=== PATIENT | female | born 1965 | race Caucasian/White ===

== ENCOUNTER 2025-08-08 19:25 | Observation (INO) ==
--- NOTE | 2025-08-08 19:37 | Emergency Department Note ---
History of Present Illness General Chief complaint: Seizure Stated complaint: POSSIBLE SEIZURE, NO HX OF Time Seen by Provider: 08/08/25 19:26 Source: patient and family ( at bedside) History of Present Illness Provider complaint: Seizure-like activity 59-year-old female on Eliquis with history of factor V deficiency presents emergency department for seizure-like activity. Patient states she does not know what happened. at bedside states that approximate 1 hour ago they were cleaning and rushing to get their son when the patient suddenly get very lightheaded and then started to collapse. He stated that the other son caught her. He stated that the patient was biting her tongue and shaking her arms uncontrollably. He states this lasted approximately 2 minutes. No history of seizures. at bedside states that the patient did not strike her head as the son lowered her to the ground. Patient is reporting no pain. Home Medications Medication Instructions Recorded Confirmed Type apixaban 5 mg tablet (Eliquis) 5 mg PO BID 08/08/25 08/08/25 History latanoprost 0.005 % eye drops 1 drp ophthalmic (eye) HS 08/08/25 08/08/25 History metformin 500 mg tablet,extended 500 mg PO DAILY 08/08/25 08/08/25 History release 24 hr rosuvastatin 20 mg tablet 20 mg PO DAILY 08/08/25 08/08/25 History Allergies Allergy/AdvReac Type Severity Reaction Status Date / Time No Known Allergies Allergy Unverified 12/29/15 11:58 Past Med/Surg History Problem List (Updated 08/08/25 @ 22:46 by Nader Berger MD) Prolonged Q-T interval on ECG (Acute) Fracture of tooth (Acute) Seizure (Acute) History of DVT (deep vein thrombosis) (Chronic) Medical History Factor V deficiency Glaucoma Chronic anticoagulation Social History Smoking Status: Never smoker Feels Safe at Home: Yes Physical Exam Vital Signs Vital Signs - 24 hr 08/08/25 19:19 08/08/25 19:19 08/08/25 19:19 Temperature 36.3 C L 36.3 C L Temperature Source Oral Oral Pulse Rate 93 H Pulse Rate [Right Finger] 94 H Pulse Rhythm [Right Finger] Respiratory Rate 18 18 Respiratory Effort / Characteristics Non-Labored Respiratory Depth Normal Blood Pressure 133/87 Blood Pressure [Right Arm] 133/87 Blood Pressure Mean 102 Blood Pressure Mean [Right Arm] 102 Pulse Oximetry 94 94 94 Oxygen Delivery Method Room Air Room Air Room Air Sepsis Recent Fever Within 48 Hours No Sepsis New/Unexplained Change in Mental Status No Sepsis Action Taken by Nursing No Action Required 08/08/25 19:26 08/08/25 19:29 08/08/25 22:13 Temperature Temperature Source Pulse Rate 99 H Pulse Rate [Right Finger] 87 Pulse Rhythm [Right Finger] Regular Respiratory Rate 16 Respiratory Effort / Characteristics Non-Labored Respiratory Depth Normal Blood Pressure Blood Pressure [Right Arm] 148/95 H Blood Pressure Mean Blood Pressure Mean [Right Arm] 112 Pulse Oximetry 94 95 Oxygen Delivery Method Room Air Room Air Sepsis Recent Fever Within 48 Hours Sepsis New/Unexplained Change in Mental Status Sepsis Action Taken by Nursing Physical Exam HENT: Exam performed. -Head: Normocephalic and atraumatic. -Right Ear: External ear normal. No mastoid erythema -Left Ear: External ear normal. No mastoid erythema -Mouth/Throat: The oropharynx is clear and moist. No trismus in the jaw. No dental abscesses or uvula swelling. No oropharyngeal exudate or tonsillar abscesses. Chipped front tooth with type I Joyce dental fracture of tooth #9 EYES: Conjunctivae and EOM are normal. Pupils are equal, round, and reactive to light. Right eye exhibits no discharge. Left eye exhibits no discharge. No scleral icterus. NECK: Normal range of motion. Neck supple. No JVD present. No spinous process tenderness present. No rigidity. No tracheal deviation and normal range of motion present. CV: Normal rate, regular rhythm, normal heart sounds and intact distal pulses. There is no peripheral edema. Palpable radial pulses bue. PULM/CHEST: Effort normal and breath sounds normal. No respiratory distress. No stridor. She has no wheezes. She has no rales. ABD: The abdomen is soft. There is no tenderness. There is no rebound, no guarding MUSC/SKEL: Normal range of motion. There is no peripheral edema, tenderness or deformity. LYMPH: No cervical adenopathy. NEURO: She is alert and oriented to person, place, and time. She has normal strength. No cranial nerve deficit or sensory deficit. Coordination normal. GCS eye subscore is 4. GCS verbal subscore is 5. GCS motor subscore is 6. Cerebellar tests wnl. Course Course 1925: The patient was evaluated in room B11. A complete history and physical exam was performed Cardiac monitoring: An order was placed for continuous cardiac monitoring. The monitor shows a rate of 100 with sinus rhythm interpreted by me 2135: Vital signs stable. Labs show white blood cell count of 11.11. Prolactin is elevated 121.37. CT head is unremarkable. Discussed the case with [facility] neurology Dr. Rangel. She recommends ordering a lactate to further confirm the suspicion of seizure. She recommends no antiepileptics at this time. She recommends MRI with and without contrast EEG and urinalysis. Patient will be admitted to the [facility] hospitalist team for neurology evaluation. Patient will also be evaluated by cardiology given her prolonged QTc. Discussed case with Dr. French who will evaluate the patient for admission. Administered Medications Discontinued Medications Sodium Chloride (Nss) 1,000 mls @ 999 mls/hr IV .Q1H1M ONE Stop: 08/08/25 20:26 Last Infusion: 08/08/25 20:55 Dose: Infused Documented By: yosi Admin: 08/08/25 19:38 Dose: 999 mls/hr Documented By: yosi Medical Decision Making Laboratory Data Attestation: I reviewed the patient's lab results. 08/08/25 19:33 08/08/25 19:33 Lab Results 08/08/25 08/08/25 Range/Units 19:33 22:07 WBC 11.11 H (4.8-10.8) K/ul RBC 5.25 (4.20-5.40) M/uL Hgb 15.3 (12.0-16.0) g/dL Hct 44.3 (37.0-47.0) % MCV 84.4 (80.0-100.0) fL MCH 29.1 (25.0-34.0) pg MCHC 34.5 (32.0-36.0) g/dL RDW Std Deviation 36.6 (36.4-46.3) fL RDW Coeff of Mary 12.1 (11.5-14.5) % Plt Count 217 (130-400) K/uL MPV 11.3 (9.4-12.4) fL Immature Gran % (Auto) 0.3 % Neut % (Auto) 51.4 % Lymph % (Auto) 36.4 % [place] % (Auto) 8.0 % Eos % (Auto) 3.3 % Baso % (Auto) 0.6 % Neut # (Auto) 5.71 (1.40-6.50) K/uL Lymph # (Auto) 4.04 H (1.20-3.40) K/uL [place] # (Auto) 0.89 H (0.11-0.59) K/uL Eos # (Auto) 0.37 (0.00-0.50) K/uL Baso # (Auto) 0.07 (0.00-0.20) K/uL Immature Gran # (Auto) 0.03 (0.01-0.20) K/uL PT 10.2 (9.0-12.0) Seconds INR 1.0 (0.9-1.1) APTT 22 (21-31) Seconds PTT Ratio 0.8 Sodium 141 (136-145) mmol/L Potassium 3.4 L (3.5-5.1) mmol/L Chloride 107 (98-107) mmol/L Carbon Dioxide 18 L (21-32) mmol/L Anion Gap 16 H (3-11) BUN 18 (6-23) mg/dl Creatinine 1.06 (0.6-1.2) mg/dl Est Cr Clr Drug Dosing Not Reportable eGFR 61.27 BUN/Creatinine Ratio 17.0 (10-20) Glucose 122 H (70-99(Fasting)) mg/dl POC Glucose 120 H (70-99) mg/dl Lactate 2.1 H* (0.4-2.0) mmol/L Calcium 9.2 (8.6-10.3) mg/dl Magnesium 2.2 (1.7-2.4) mg/dl Prolactin 121.37 ng/ml Imaging Data Radiologist's Impression: Head CT 08/08/25 19:26 Exam(s): CT HEAD Without Contrast EXAM: CT Head Without Intravenous Contrast CLINICAL HISTORY: Reason for exam: seizure. TECHNIQUE: Axial computed tomography images of the head/brain without intravenous contrast. CTDI is 37.42 mGy and DLP is 625.8 mGy-cm. Automated exposure control was utilized for the study. A dose lowering technique was utilized adhering to the principles of ALARA. COMPARISON: 07/17/2016 FINDINGS: Brain: Unremarkable. No hemorrhage. No significant white matter disease. No edema. Ventricles: Unremarkable. No ventriculomegaly. Bones/joints: Unremarkable. No acute fracture. Soft tissues: Unremarkable. Sinuses: Unremarkable as visualized. No acute sinusitis. Mastoid air cells: Unremarkable as visualized. No mastoid effusion. IMPRESSION: Normal head/brain CT. Electronically signed by: Deniz Nance MD 08/08/25 20:59 PM ECG Data Attestation: I personally reviewed and interpreted this ECG as follows: Additional Comments: EKG #1 at 1933: Sinus tachycardia with rate 100. ID [id number] QRS [address] elevation or ST depression. EKG #2 at 1952: Sinus rhythm with a rate of 91. ID [id number] QRS [address] elevation or ST depression. [facility] Narrative 1926: The patient was evaluated in room B11. A complete history and physical exam was performed Cardiac monitoring: An order was placed for continuous cardiac monitoring. The monitor shows a rate of 100 with sinus rhythm interpreted by ia 2135: Vital signs stable. Labs show white blood cell count of 11.11. Prolactin is elevated 121.37. CT head is unremarkable. Discussed the case with [facility] neurology Dr. Rangel. She recommends ordering a lactate to further confirm the suspicion of seizure. She recommends no antiepileptics at this time. She recommends MRI with and without contrast EEG and urinalysis. Patient will be admitted to the [facility] hospitalist team for neurology evaluation. Patient will also be evaluated by cardiology given her prolonged QTc. Discussed case with Dr. French who will evaluate the patient for admission. Impression & Plan Seizure, Fracture of tooth, Prolonged Q-T interval on ECG Discharge Plan Visit Data Chief Complaint: Seizure Stated Complaint: POSSIBLE SEIZURE, NO HX OF ED Provider: Nader Berger Discharge Problem: Seizure, Fracture of tooth, Prolonged Q-T interval on ECG Patient Disposition: Admitted As Inpatient Condition: Fair Forms Stand Alone Forms: [facility] [place] dINK Prescriptions Prescriptions: No Action latanoprost 0.005 % drops 1 drp ophthalmic (eye) HS metformin 500 mg tablet extended release 24 hr 500 mg PO DAILY rosuvastatin 20 mg tablet 20 mg PO DAILY Eliquis 5 mg tablet 5 mg PO BID Referrals Referrals: PCP,NO [Physician] - Discharge Problem: Fracture of tooth Qualifiers: Encounter type: initial encounter
[2025-08-08] MEDS: SODIUM CHLORIDE 0.9% 1,000 ML IV ONE (19:38)
[2025-08-08 19:51] LABS: Hematocrit (blood only) 44.3 % (37.0-47.0); Hemoglobin 15.3 g/dL (12.0-16.0); Immature Granulocytes # (auto) 0.03 K/uL (0.01-0.20); Immature Granulocytes % (auto) 0.3 %; Mean Corpuscular Hemoglobin 29.1 pg (25.0-34.0); Mean Corpuscular Volume 84.4 fL (80.0-100.0); Platelet Count 217 K/uL (130-400); RDW Standard Deviation 36.6 fL (36.4-46.3); Red Blood Count 5.25 M/uL (4.20-5.40); White Blood Count 11.11 K/ul (4.8-10.8)
[2025-08-08 19:59] LABS: Anion Gap 16 (3-11); Calcium 9.2 mg/dl (8.6-10.3); Carbon Dioxide 18 mmol/L (21-32); Chloride 107 mmol/L (98-107); Potassium 3.4 mmol/L (3.5-5.1); Sodium 141 mmol/L (136-145)
[2025-08-08 20:05] LABS: Blood Urea Nitrogen 18 mg/dl (6-23); Glucose 122 mg/dl (70-99(Fasting))
[2025-08-08 20:17] LABS: INR 1.0 (0.9-1.1); Partial Thromboplastin Time 22 Seconds (21-31); Prothrombin Time 10.2 Seconds (9.0-12.0)
--- NOTE | 2025-08-08 21:00 | CT Scan Report ---
Exam(s): CT HEAD Without Contrast EXAM: CT Head Without Intravenous Contrast CLINICAL HISTORY: Reason for exam: seizure. TECHNIQUE: Axial computed tomography images of the head/brain without intravenous contrast. CTDI is 37.42 mGy and DLP is 625.8 mGy-cm. Automated exposure control was utilized for the study. A dose lowering technique was utilized adhering to the principles of ALARA. COMPARISON: 07/17/2016 FINDINGS: Brain: Unremarkable. No hemorrhage. No significant white matter disease. No edema. Ventricles: Unremarkable. No ventriculomegaly. Bones/joints: Unremarkable. No acute fracture. Soft tissues: Unremarkable. Sinuses: Unremarkable as visualized. No acute sinusitis. Mastoid air cells: Unremarkable as visualized. No mastoid effusion. IMPRESSION: Normal head/brain CT. Electronically signed by: Deniz Nance MD 08/08/25 20:59 PM
[2025-08-08 21:31] LABS: Magnesium 2.2 mg/dl (1.7-2.4)
--- NOTE | 2025-08-08 22:53 | History & Physical Report ---
Date of Service August 08, 2025 Assessment & Plan (1) Seizure: Plan: 59-year-old female with past medical history significant for homozygous factor V Leyden mutation, primary hypercoagulable state, thrombosis of saphenous vein, history of colonoscopy with polypectomy, dyslipidemia, prediabetes presents with seizures. Today evening patient and were cleaning the house as the son is visiting for [place]. At that time patient was feeling slightly l ightheaded and asked her to go downstairs. Patient climbed down the steps and was in the kitchen when she suddenly fell down and fortunately another son was close by who lowered her slowly to the ground. During the episode patient was shaking her upper extremities. And she bit her tongue or lip. Her upper front teeth chipped and having pain in the teeth. No incontinence of urine or stool during the episode. The episode lasted about 1 to 2 minutes but patient was confused for about an hour. Patient does not remember the event. Currently resting comfortably and hemodynamically stable. Patient still has some lightheadedness and headache. No runny nose or sore throat. No cough. No fevers. Appetite is okay. Eating and drinking okay. Patient does not think that she is dehydrated. Denies any chest pain or shortness of breath. No nausea. No abdominal pain. Normal bowel and bladder movements. No rash.Complains of some pain in the bilateral shins possibly from the fall. Patient goes to gym regularly and did elliptical for 45minutes yesterday. Seizure CT head is okay Procalcitonin 121 Lactic acid 2.1 and repeat 0.8 ER spoke with [facility] neurology on-call and was recommended EEG, MRI with and without contrast and no antiepileptics for now Seizure precautions Telemetry IV Ativan as needed for breakthrough seizures Close monitor Will follow repeat labs Neurology consult Prolonged QTc QTc 504 Potassium 3.4 will replace Monitor on telemetry Will consult cardiology for any syncope Fluids Will follow echo Homozygous factor V Leiden mutation Primary hypercoagulable state History of thrombosis of saphenous vein On Eliquis Dyslipidemia On Crestor Prediabetes On metformin which be held Sliding scale Will follow HbA1c levels DVT prophylaxis On Eliquis Disposition Telemetry Full code. Addendum: Am labs showed troponin 245. Seems asymptomatic and ekg unremarkable. Patinet already on eliquis. Will follow repeat levels and echo. Cardio consulted. History of Present Illness Chief Complaint: Seizure Primary Care Provider: Tesha Angulo MD 59-year-old female with past medical history significant for homozygous factor V Leyden mutation, primary hypercoagulable state, thrombosis of saphenous vein, history of colonoscopy with polypectomy, dyslipidemia, prediabetes presents with seizures. Today evening patient and were cleaning the house as the son is visiting for [place]. At that time patient was feeling slightly lightheaded and asked her to go downstairs. Patient climbed down the steps and was in the kitchen when she suddenly fell down and fortunately another son was close by who lowered her slowly to the ground. During the episode patient was shaking her upper extremities. And she bit her tongue or lip. Her upper front teeth chipped and having pain in the teeth. No incontinence of urine or stool during the episode. The episode lasted about 1 to 2 minutes but patient was confused for about an hour. Patient does not remember the event. Currently resting comfortably and hemodynamically stable. Patient still has some lightheadedness and headache. No runny nose or sore throat. No cough. No fevers. Appetite is okay. Eating and drinking okay. Patient does not think that she is dehydrated. Denies any chest pain or shortness of breath. No nausea. No abdominal pain. Normal bowel and bladder movements. No rash.Complains of some pain in the bilateral shins possibly from the fall. Patient goes to gym regularly and did elliptical for 45minutes yesterday. Past medical history. As mentioned above. Past surgical history. Colonoscopy. Hysteroscopic biopsy. Inguinal hernia repair. Social history. . No smoking. Alcohol rarely. No drug use. Family history. Brother had blood disorder. Father had CABG at age 80. Diabetes. Mother has hypertriglycerides. Allergies Allergy/AdvReac Type Severity Reaction Status Date / Time No Known Allergies Allergy Unverified 12/29/15 11:58 Home Medications Medication Instructions Recorded Confirmed Type apixaban 5 mg tablet (Eliquis) 5 mg PO BID 08/08/25 08/08/25 History latanoprost 0.005 % eye drops 1 drp ophthalmic (eye) HS 08/08/25 08/08/25 History metformin 500 mg tablet,extended 500 mg PO DAILY 08/08/25 08/08/25 History release 24 hr rosuvastatin 20 mg tablet 20 mg PO DAILY 08/08/25 08/08/25 History Past Med/Surg History Problem List (Updated 08/08/25 @ 22:46 by Nader Berger MD) Prolonged Q-T interval on ECG (Acute) Fracture of tooth (Acute) Seizure (Acute) History of DVT (deep vein thrombosis) (Chronic) Medical History Factor V deficiency Glaucoma Chronic anticoagulation Social History Smoking Status: Never smoker Second Hand Exposure: No; Do You Dip or Chew Tobacco: No; Hx Alcohol Use: No Hx Substance Use: No Preferred Language: Korean Communication Ability: Effective Columnist Required: No Beliefs That Will Affect Care: None Current Living Situation: Spouse Other Information That Helps Us Care for You: No Feels Safe at Home: Yes Safety Concerns: Feels Safe At This Time Assistive Devices: Glasses Review of Systems Review of Systems: All systems reviewed & are unremarkable except as noted in HPI & below Physical Exam Physical Exam: General- Not in distress Head- atraumatic Eyes- PERRL, EOMI, anicteric ENT- oropharynx some dry blood seen on the lips Neck- supple, no JVD. Lungs- clear to auscultation no wheezing or crackles Heart- regular rhythm; no murmur, no gallop. Abdomen- normal bowel sounds, soft, nontender, no distension Extremities- no pretibial edema, no erythema seen Neuro- alert, oriented PERRL, no facial palsy; no dysarthria; moves extremities Results & Data Results & Data Vital Signs (Past 12 Hours) Vital Signs Temp Pulse Pulse Resp BP BP Pulse Ox 08/08/25 22:13 87 16 148/95 H 95 08/08/25 19:29 99 H 08/08/25 19:26 94 08/08/25 19:19 36.3 C L 94 H 18 133/87 94 08/08/25 19:19 94 08/08/25 19:19 36.3 C L 93 H 18 133/87 94 O2 Del Method 08/08/25 22:13 Room Air 08/08/25 19:29 08/08/25 19:26 Room Air 08/08/25 19:19 Room Air 08/08/25 19:19 Room Air 08/08/25 19:19 Room Air Diagnostic Findings Laboratory Results WBC 11.11 K/ul (4.8-10.8) H 08/08/25 19: RBC 5.25 M/uL (4.20-5.40) 08/08/25 19:33 Hgb 15.3 g/dL (12.0-16.0) 08/08/25 19: Hct 44.3 % (37.0-47.0) 08/08/25 19: MCV 84.4 fL (80.0-100.0) 08/08/25 19: MCH 29.1 pg (25.0-34.0) 08/08/25 19: MCHC 34.5 g/dL (32.0-36.0) 08/08/25 19: RDW Std Deviation 36.6 fL (36.4-46.3) 08/08/25: RDW Coeff of Mary 12.1 % (11.5-14.5) 08/08/25: Plt Count 217 K/uL (130-400) 08/08/25 19: MPV 11.3 fL (9.4-12.4) 08/08/25 19: Immature Gran % (Auto) 0.3 % 08/08/25 19: Neut % (Auto) 51.4 % 08/08/25 19: Lymph % (Auto) 36.4 % 08/08/25 19: [place] % (Auto) 8.0 % 08/08/25: Eos % (Auto) 3.3 % 08/08/25: Baso % (Auto) 0.6 % 08/08/25: Neut # (Auto) 5.71 K/uL (1.40-6.50) 08/08/25 19: Lymph # (Auto) 4.04 K/uL (1.20-3.40) H 08/08/25 19: [place] # (Auto) 0.89 K/uL (0.11-0.59) H 08/08/25 19: Eos # (Auto) 0.37 K/uL (0.00-0.50) 08/08/25 19: Baso # (Auto) 0.07 K/uL (0.00-0.20) 08/08/25 19:33 Immature Gran # (Auto) 0.03 K/uL (0.01-0.20) 08/08/25 19:33 PT 10.2 Seconds (9.0-12.0) 08/08/25 19:33 INR 1.0 (0.9-1.1) 08/08/25 19:33 APTT 22 Seconds (21-31) 08/08/25 19:33 PTT Ratio 0.8 08/08/25 19:33 Sodium 141 mmol/L (136-145) 08/08/25 19:33 Potassium 3.4 mmol/L (3.5-5.1) L 08/08/25 19:33 Chloride 107 mmol/L (98-107) 08/08/25 19:33 Carbon Dioxide 18 mmol/L (21-32) L 08/08/25 19:33 Anion Gap 16 (3-11) H 08/08/25 19:33 BUN 18 mg/dl (6-23) 08/08/25 19:33 Creatinine 1.06 mg/dl (0.6-1.2) 08/08/25 19:33 Est Cr Clr Drug Dosing Not Reportable 08/08/25 19:33 eGFR 61.27 08/08/25 19:33 BUN/Creatinine Ratio 17.0 (10-20) 08/08/25 19:33 Glucose 122 mg/dl (70-99(Fasting)) H 08/08/25 19:33 POC Glucose 120 mg/dl (70-99) H 08/08/25 19:33 Lactate 2.1 mmol/L (0.4-2.0) H* 08/08/25 22:07 Calcium 9.2 mg/dl (8.6-10.3) 08/08/25 19:33 Magnesium 2.2 mg/dl (1.7-2.4) 08/08/25 19:33 Prolactin 121.37 ng/ml 08/08/25 19:[address] 08/08/25 19:26 Exam(s): CT HEAD Without Contrast EXAM: CT Head Without Intravenous Contrast CLINICAL HISTORY: Reason for exam: seizure. TECHNIQUE: Axial computed tomography images of the head/brain without intravenous contrast. CTDI is 37.42 mGy and DLP is 625.8 mGy-cm. Automated exposure control was utilized for the study. A dose lowering technique was utilized adhering to the principles of ALARA. COMPARISON: 07/17/2016 FINDINGS: Brain: Unremarkable. No hemorrhage. No significant white matter disease. No edema. Ventricles: Unremarkable. No ventriculomegaly. Bones/joints: Unremarkable. No acute fracture. Soft tissues: Unremarkable. Sinuses: Unremarkable as visualized. No acute sinusitis. Mastoid air cells: Unremarkable as visualized. No mastoid effusion. IMPRESSION: Normal head/brain CT. Electronically signed by: Deniz Nance MD 08/08/25 20:59 PM ECG Additional Comments: ECG. Normal sinus rhythm rate of 91. Prolonged QTc at 504. No significant changes found. Code Status & VTE Plan VTE Prophylaxis Plan VTE Prophylaxis will be ordered: Yes
[2025-08-08] MEDS: ACETAMINOPHEN 1,000 MG/100 ML VIAL IV STA (23:31)
[2025-08-08] MEDS: POTASSIUM CHLORIDE 20 MEQ/15 ML UDC PO STA (23:31)
[2025-08-08] MEDS: SODIUM CHLORIDE 0.9% 500 ML IV ONE (23:32)
[2025-08-08] MEDS: APIXABAN 5 MG TABLET PO ONE (23:32)
[2025-08-08 23:56] LABS: Appearance Urine Cloudy (Clear); Bacteria Urine Automated None Seen (None Seen); Cast Urine Automated 0-2 /lpf (0-2); Epithelial Cell Urine Auto 0-2 /hpf (0-2); Glucose Urine UA Negative (Negative); RBC Urine Automated 0-2 /hpf (0-2); WBC Urine Automated 0-5 /hpf (0-5)
[2025-08-09] MEDS ORDERED: NITROGLYCERIN SL 0.4 MG/TAB TAB SL PRN (00:21)
[2025-08-09] MEDS ORDERED: POLYETHYLENE (MIRALAX) 17 GM PACK PO PRN (00:21)
[2025-08-09] MEDS: SODIUM CHLORIDE 0.9% 1,000 ML IV SCH (00:38)
[2025-08-09] MEDS: GADOBUTROL 65ML VIAL IV ONE (01:59)
--- NOTE | 2025-08-09 03:06 | Magnetic Resonance Report ---
EXAM: MR brain wo/w con CLINICAL HISTORY: Seizure. TECHNIQUE: MRI of the brain was performed with and without intravenous contrast administration, with an epilepsy protocol. Sequences obtained include pre-contrast and post-contrast T1-weighted, T2-weighted, FLAIR (Fluid-Attenuated Inversion Recovery), DWI (Diffusion-Weighted Imaging), and ADC (Apparent Diffusion Coefficient) sequences. COMPARISON: Comparison is made with prior CT 08/08/2025 FINDINGS: Brain Parenchyma: No evidence of acute infarction or hemorrhage. Torres-white matter differentiation is preserved. Bilateral hippocampi appear unremarkable. Few Virchow-Vish spaces in the bilateral basal ganglia. Post-Contrast Findings: No abnormal enhancement of the brain parenchyma or meninges. Ventricles and Sulci: The ventricular system is within normal limits without evidence of hydrocephalus. Sulci and cisternal spaces are age-appropriate. Brainstem and Cerebellum: Normal appearance of the brainstem and cerebellum without focal lesions or abnormal enhancement. Vessels: Intracranial vessels appear normal without evidence of vascular malformations or aneurysms. Skull and Calvarium: No evidence of skull vault lesions or abnormal marrow signal within the calvarium. Incidental mild bilateral inferior turbinate hypertrophy with minimal mucosal thickening in ethmoid air cells. IMPRESSION: 1. No evidence of acute intracranial pathology or abnormal contrast enhancement. 2. The findings concur with prior plain CT head. Electronically signed by Akash Pan 08-09-2025 03:05 AM
[2025-08-09] MEDS: LORazepam 0.5 MG TAB PO STA (03:09)
[2025-08-09 06:05] LABS: Hematocrit (blood only) 39.8 % (37.0-47.0); Hemoglobin 13.9 g/dL (12.0-16.0); Immature Granulocytes # (auto) 0.04 K/uL (0.01-0.20); Immature Granulocytes % (auto) 0.3 %; Mean Corpuscular Hemoglobin 29.0 pg (25.0-34.0); Mean Corpuscular Volume 82.9 fL (80.0-100.0); Platelet Count 203 K/uL (130-400); RDW Standard Deviation 37.2 fL (36.4-46.3); Red Blood Count 4.80 M/uL (4.20-5.40); White Blood Count 13.26 K/ul (4.8-10.8)
[2025-08-09 06:28] LABS: Anion Gap 7.0 (3-11); Blood Urea Nitrogen 11.0 mg/dl (6-23); Calcium 8.6 mg/dl (8.6-10.3); Carbon Dioxide 23.0 mmol/L (21-32); Chloride 112.0 mmol/L (98-107); Creatinine Clr Calc Pharmacy 99.1 ml/min; Glucose 96.0 mg/dl (70-99(Fasting)); Magnesium 2.2 mg/dl (1.7-2.4); Potassium 4.1 mmol/L (3.5-5.1); Sodium 142.0 mmol/L (136-145)
[2025-08-09 08:00] LABS: Hemoglobin A1C 5.5 % (4.5-5.6)
--- NOTE | 2025-08-09 08:44 | Cardiology Consultation ---
Date of Consultation August 09, 2025 Assessment & Plan (1) Seizure: (2) Elevated troponin: (3) Hypercoagulable state: Plan Patient is a 59 year old female admitted after a probable seizure at home, based on the description. Neurology consulted. Head CT and Brain MRI are negative. EEG pending. No arrhythmias on telemetry. Borderline prolonged QT interval noted on arrival, improved on repeat today HS troponin elevated at 245. Repeat HS troponin pending. EKG's without acute ischemic changes. Echo with normal LVEF No chest pain or dyspnea reported Monitor serial troponin. Given her hypercoagulable state, need to remain on Eliquis 5 mg BID. No indication for IV heparin at this time. No indication for cardiac cath, unless troponin trends higher and she develops cardiac symptoms or acute EKG changes. Continue statin. Further recommendations pending discussion and evaluation with Dr. Cuadra. I spent a total of 60 minutes on the date of service in preparation, delivery, and documentation of the care provided to this patient, excluding any time spent in the performance of separately billed services. Angie Garland PA-C Department of Cardiology, [facility] This chart was completed in part utilizing Speech Voice Recognition Software. Grammatical errors, random word insertions, pronoun errors, and incomplete sentences are an occasional consequence of this system due to software limitations, ambient noise, and hardware issues. Any formal questions or concerns about the content, text, or information contained within the body of this dictation should be directly addressed to the provider for clarification. Supervising Physician Co-Signing Physician Notes Patient seen and examined. Past medical history, surgical history, social history and family history have been reviewed. The medical record and all the above studies have been reviewed. Case DW AMY including management. Seizure episode Homozygous factor V Leiden mutation HLD DM Electrolyte abn Sinus bradycardia - asymptomatic Abnormal Troponin - likely due to demand ischemia and not indicative of Type I ID Recommendations: continue Eliquis correct and f/u electrolytes f/u renal function f/u with Neurology avoid hypovolemia keep patient euvolemic continue statin ECHO as above History of Present Illness Reason for Consultation: Seizure vs syncope? Prolonged QT interval Requesting Physician: Myranda Hospitalist Attending Physician: Dr. Cuadra History of Present Illness Patient is a 59 year old female who presented to [facility] after a possible seizure and syncopal event. Patietn does not recall events. SHe told she was lightheaded and then collapsed with seizure like activiity lasting several minutes per admission notes. No incontinence. Upon resolution of her convulsions she was confused and 911 was called. On admission, she was found to have NSR with borderline prolonged QT interval at 504. HS troponin elevated at 245. Repeat pending No chest pain reported. EKG demonstrating NSR, no acute ischemic changes. Cardiology consulted for further evaluation. No prior cardiac history Neurology also consulted. Head CT was negative for acute findings. Brain MRI was unremarkable as well. Telemed neuro visit is pending for this morning. EEG also pending. Patient reports feeling ok this morning. No recurrent lightheadedness or dizziness. She reports one prior episode of "fainting" last year while standing playing bells in a choir. No current chest pain or dyspnea. Feels "tired". Voices no other complaints at this time. History includes: Factor V Leiden mutation on chronic anticoagulation with Eliquis Hypercoagulable state Prior thrombosis of the saphenous vein DM Dyslipidemia Allergies Allergy/AdvReac Type Severity Reaction Status Date / Time No Known Allergies Allergy Unverified 12/29/15 11:58 Home Medications Medication Instructions Recorded Confirmed Type apixaban 5 mg tablet (Eliquis) 5 mg PO BID 08/08/25 08/08/25 History latanoprost 0.005 % eye drops 1 drp ophthalmic (eye) HS 08/08/25 08/08/25 History metformin 500 mg tablet,extended 500 mg PO DAILY 08/08/25 08/08/25 History release 24 hr rosuvastatin 20 mg tablet 20 mg PO DAILY 08/08/25 08/08/25 History Patient History Medical History Factor V deficiency Glaucoma Chronic anticoagulation Social History Smoking Status: Never smoker Second Hand Exposure: No; Do You Dip or Chew Tobacco: No; Hx Alcohol Use: No Hx Substance Use: No Preferred Language: Mohawk Communication Ability: Effective Laboratory Equipment Installer Required: No Beliefs That Will Affect Care: None Current Living Situation: Spouse Other Information That Helps Us Care for You: No Feels Safe at Home: Yes Safety Concerns: Feels Safe At This Time Assistive Devices: None Review of Systems Review of Systems: All systems reviewed & are unremarkable except as noted in HPI & below Physical Exam Constitutional: WD/WN, vitals as above no acute distress Respiratory: normal respiratory effort, lungs clear to auscultation Cardiovascular: Rate/Rhythm: regular rate and regular rhythm Heart Sounds: normal S1 and normal S2; no murmur Gastrointestinal (Abdomen): normal bowel sounds, soft, nontender, no hepatosplenomegaly Neurologic: PERRL, EOMI, accommodation nl, no face palsy, no dysarthria Results & Data Vital Signs (Past 12 Hours) Vital Signs Temp Pulse Pulse Resp BP BP Pulse Ox 08/09/25 03:58 36.5 C 85 18 131/74 98 08/09/25 00:04 61 08/09/25 00:01 36.3 C L 83 18 159/89 H 96 08/08/25 23:51 82 17 128/70 97 08/08/25 23:18 83 08/08/25 22:13 87 16 148/95 H 95 O2 Del Method 08/09/25 03:58 Room Air 08/09/25 00:04 08/09/25 00:01 Room Air 08/08/25 23:51 Room Air 08/08/25 23:18 08/08/25 22:13 Room Air Laboratory Results Cardiac Enzymes 08/09/25 Range/Units 05:13 Troponin I High Sens 245.8 H* (0-14) pg/ml Coagulation 08/08/25 Range/Units 19:33 PT 10.2 (9.0-12.0) Seconds APTT 22 (21-31) Seconds CBC 08/08/25 08/09/25 Range/Units 19:33 05:13 WBC 11.11 H 13.26 H (4.8-10.8) K/ul RBC 5.25 4.80 (4.20-5.40) M/uL Hgb 15.3 13.9 (12.0-16.0) g/dL Hct 44.3 39.8 (37.0-47.0) % Plt Count 217 203 (130-400) K/uL Neut # (Auto) 5.71 10.47 H (1.40-6.50) K/uL Lymph # (Auto) 4.04 H 1.67 (1.20-3.40) K/uL [place] # (Auto) 0.89 H 0.98 H (0.11-0.59) K/uL Eos # (Auto) 0.37 0.05 (0.00-0.50) K/uL Baso # (Auto) 0.07 0.05 (0.00-0.20) K/uL Comprehensive Metabolic Panel 08/08/25 08/09/25 Range/Units 19:33 05:13 Sodium 141 142 (136-145) mmol/L Potassium 3.4 L 4.1 D (3.5-5.1) mmol/L Chloride 107 112 H (98-107) mmol/L Carbon Dioxide 18 L 23 (21-32) mmol/L BUN 18 11 (6-23) mg/dl Creatinine 1.06 0.68 D (0.6-1.2) mg/dl Glucose 122 H 96 (70-99(Fasting)) mg/dl Calcium 9.2 8.6 (8.6-10.3) mg/dl Intake and Output 08/08/25 08/09/25 08/09/25 22:59 06:59 14:59 Intake Total 1000 / 1600 600 / 1600 Balance 1000 / 1600 600 / 1600 Intake: IV 1000 / 1600 600 / 1600 Acetaminophen 1,000 mg In 100 100 / 100 ml @ 400 mls/hr IV NOW STA Rx#: [id number] Sodium Chloride 0.9% 500 ml @ 1000 / 1500 500 / 1500 999 mls/hr IV .Q31M ONE Rx#: [id number] Other: Other Intake Source npo # Unmeasured Voids 3 Weight 79.6 kg Weight Measurement Method Built in [facility] Diagnostic Findings Telemetry reviewed: NSR in the Echo report reviewed dated 08/09/25: Normal LVEF at 60-65% Grade I diastolic dysfunction Mild pulmonic valvular regurgitation Mild TR Mild MR EKG reviewed on admission: NSR at 91 bpm No acute ischemic changes Borderline prolonged QTc interval at 410/504 ms Repeat EKG reviewed today 08/09: NSR, normal EKG QT/QTC 390/[address] 08/08/25 19:26 Exam(s): CT HEAD Without Contrast EXAM: CT Head Without Intravenous Contrast CLINICAL HISTORY: Reason for exam: seizure. TECHNIQUE: Axial computed tomography images of the head/brain without intravenous contrast. CTDI is 37.42 mGy and DLP is 625.8 mGy-cm. Automated exposure control was utilized for the study. A dose lowering technique was utilized adhering to the principles of ALARA. COMPARISON: 07/17/2016 FINDINGS: Brain: Unremarkable. No hemorrhage. No significant white matter disease. No edema. Ventricles: Unremarkable. No ventriculomegaly. Bones/joints: Unremarkable. No acute fracture. Soft tissues: Unremarkable. Sinuses: Unremarkable as visualized. No acute sinusitis. Mastoid air cells: Unremarkable as visualized. No mastoid effusion. IMPRESSION: Normal head/brain CT. Electronically signed by: Deniz Nance MD 08/08/25 20:59 PM Brain MRI 08/09/25 08:00 EXAM: MR brain wo/w con CLINICAL HISTORY: Seizure. TECHNIQUE: MRI of the brain was performed with and without intravenous contrast administration, with an epilepsy protocol. Sequences obtained include pre-contrast and post-contrast T1-weighted, T2-weighted, FLAIR (Fluid-Attenuated Inversion Recovery), DWI (Diffusion-Weighted Imaging), and ADC (Apparent Diffusion Coefficient) sequences. COMPARISON: Comparison is made with prior CT 08/08/2025 FINDINGS: Brain Parenchyma: No evidence of acute infarction or hemorrhage. Torres-white matter differentiation is preserved. Bilateral hippocampi appear unremarkable. Few Virchow-Vish spaces in the bilateral basal ganglia. Post-Contrast Findings: No abnormal enhancement of the brain parenchyma or meninges. Ventricles and Sulci: The ventricular system is within normal limits without evidence of hydrocephalus. Sulci and cisternal spaces are age-appropriate. Brainstem and Cerebellum: Normal appearance of the brainstem and cerebellum without focal lesions or abnormal enhancement. Vessels: Intracranial vessels appear normal without evidence of vascular malformations or aneurysms. Skull and Calvarium: No evidence of skull vault lesions or abnormal marrow signal within the calvarium. Incidental mild bilateral inferior turbinate hypertrophy with minimal mucosal thickening in ethmoid air cells. IMPRESSION: 1. No evidence of acute intracranial pathology or abnormal contrast enhancement. 2. The findings concur with prior plain CT head. Electronically signed by Akash Pan 08-09-2025 03:05 AM Medications Administered Current Inpatient Medications Acetaminophen (Acetaminophen 325 Mg Tab) 650 mg PO Q4H PRN PRN Reason: Pain or Fever Stop: 09/08/25 00:20 Apixaban (Apixaban 5 Mg Tablet) 5 mg PO BID KRISTOPHER Stop: 09/08/25 08:59 Sodium Chloride (Nss) 1,000 mls @ 125 mls/hr IV .Q8H KRISTOPHER Stop: 08/09/25 16:20 Last Admin: 08/09/25 00:38 Dose: 125 mls/hr Lorazepam 1.5 mg/ Syringe 1.5 mls @ 2 mls/min IV Q2H PRN PRN Reason: Breakthrough Seizures Stop: 09/08/25 00:20 Latanoprost (Latanoprost 0.005% Op Soln 2.5 Ml Btl) 1 drops OP HS KRISTOPHER Stop: 09/08/25 20:59 Nitroglycerin (Nitroglycerin Sl 0.4 Mg/Tab Tab) 0.4 mg SL Q5M PRN PRN Reason: Chest Pain Stop: 09/08/25 00:20 Polyethylene Glycol (Polyethylene (Miralax) 17 Gm Pack) 17 gm PO DAILY PRN PRN Reason: Constipation Stop: 09/08/25 00:20 Rosuvastatin Calcium (Rosuvastatin Calcium 20 Mg Tab) 20 mg PO DAILY KRISTOPHER Stop: 09/08/25 08:59 PG Care Time/CCT Total # of Minutes Spent Total Time Spent with Patient: Total time spent is greater than 50% in coordination of care (as documented) at patient's floor/unit and/or counseling patient: 60 minutes Coding Level of Care Code 90397 IN/OBS CONSULT LVL 5,80M Diagnoses Seizure R56.9 Elevated troponin R79.89 Hypercoagulable state D68.59
[2025-08-09] MEDS: APIXABAN 5 MG TABLET PO SCH (08:53)
[2025-08-09] MEDS: ROSUVASTATIN CALCIUM 20 MG TAB PO SCH (08:53)
--- NOTE | 2025-08-09 09:12 | XCELERA ---
[id number] [id number]
--- NOTE | 2025-08-09 10:34 | Neurology Consultation ---
Date of Consultation August 09, 2025 Assessment & Plan (1) Seizure: Suspect generalized seizure etiology appears unprovoked at this time, agree with continued infectious and metabolic workup Recommend Keppra 500mg PO BID Recommend obtain EEG Provide seizure precautions Utilize benzodiazepines emergently for any breakthrough clinical seizure like activity Continue frequent neurological assessments Obtain stat CT brain without contrast for any acute neurological decline Continue to monitor/control blood pressure & blood glucose Continue to monitor telemetry closely Recommend consider placing ZioPatch at DC if no evidence of arrhythmia during inpatient monitoring Continue to monitor renal and hepatic function, keep euvolemic Ok from neurology perspective for VTE prophylaxis PT/OT/SLT to eval and treat Recommend eval for VINNIE and consider outpatient polysomnography No driving per [place] state law- communicated directly with primary/hospitalist team who will confirm [employer] notification Plan for continued follow up outpatient neurology Telehealth Consultation Telehealth Information Telehealth Information: I performed this visit using a real-time telehealth connection between my location and the patients originating location ([facility]). After connecting through interactive tele-video, patient was identified by name and date of and/or wristband check.Patient (or authorized healthcare insurance follow up representative) was informed that this was a telemedicine visit and it was being conducted confidentially over secure lines. My office door was closed and no one else was present in the room with me.Patient (or authorized healthcare insurance follow up representative) provided consent to proceed with the visit, expressed an understanding of privacy and security of the telemedicine visit, and gave permission to have a hospital insurance follow up representative in the room in order to assist with the visit and to conduct portions of the visit, as needed. I informed the patient (or authorized healthcare insurance follow up representative) that I reviewed their record and presented the opportunity for them to ask any questions regarding the visit today. The patient agreed to participate. History of Present Illness Reason for Consultation: Seizure Requesting Physician: Dr Rutherford Attending Physician: Hayden Rutherford MD History of Present Illness 59yo right handed female with known hx of hypercoagulable state/homozygous factor V Leyden mutation dyslipidemia and prediabetes presented after episode of seizure like activity. Apparently she was home with and family when she suddenly felt lightheaded and then demonstrated body shaking. Notably she does not remember what happened. She reports remembering telling her that she felt light headed then the next thing she can recall the EMS was standing over her. There was evidence of tongue and lip biting and also her tooth was chipped and she reports loose teeth as well now following the event. She denies hx of seizure. 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 She has undergone CT brain without contrast, personally reviewed today, revealing no overt evidence of hemorrhage. She has also undergone MRI brain with and without contrast, also personally reviewed today revealing no overt evidence of acute intracranial or causative pathology. I have performed televideo consultation. She is alert & oriented; able to answer all questions appropriately, name objects on televideo monitor, repeat phrases and perform complex/embedded commands without deficit. Neurological exam is non lateralizing/nonfocal in terms of motor strength and coordination. At this time appears in no apparent distress or discomfort. No reported cephalgia or cervicalgia at this time. She denies chest pain/palpitations or shortness of breath. Denies recent fevers chills nausea vomiting changes in bowels or bladder. Denies recent medication changes, recent illness or sick contacts, no reported recent travel. SHe is aware of no driving following this type of episode and is in agreement. We have discussed seizure precautions, all questions answered. She is in agreement to be initiated on Keppra. Denies SI or HI now and denies history of SI/HI. Allergies Allergy/AdvReac Type Severity Reaction Status Date / Time No Known Allergies Allergy Unverified 12/29/15 11:58 Home Medications Medication Instructions Recorded Confirmed Type apixaban 5 mg tablet (Eliquis) 5 mg PO BID 08/08/25 08/08/25 History latanoprost 0.005 % eye drops 1 drp ophthalmic (eye) HS 08/08/25 08/08/25 History metformin 500 mg tablet,extended 500 mg PO DAILY 08/08/25 08/08/25 History release 24 hr rosuvastatin 20 mg tablet 20 mg PO DAILY 08/08/25 08/08/25 History Patient History Medical History Factor V deficiency Glaucoma Chronic anticoagulation Social History Smoking Status: Never smoker Second Hand Exposure: No; Do You Dip or Chew Tobacco: No; Hx Alcohol Use: No Hx Substance Use: No Preferred Language: Khmer Communication Ability: Effective Financial Report Service Sales Agent Required: No Beliefs That Will Affect Care: None Current Living Situation: Spouse Other Information That Helps Us Care for You: No Feels Safe at Home: Yes Safety Concerns: Feels Safe At This Time Assistive Devices: Glasses Physical Exam Neurological Examination: Mental Status: Awake and alert. Oriented to person, place, and time. Fluency naming repetition and comprehension appear grossly intact. Affect remains appropriate. CN testing: I: Deferred II: Reports no changes in visual acuity III/IV/: No evidence of gaze preference, hippus, nystagmus or roving eye movements V: Facial sensation reportedly grossly intact to light touch bilaterally VII: Facial movements appear without evidence of asymmetry VIII: Hearing appears grossly intact to loud voice bilaterally IX/X: Palate is unable to be accurately visualized XI: Shoulder shrug appears symmetric/ grossly intact bilaterally XII: Tongue protrudes midline Motor exam: Strength appears grossly intact in all extremities Tone: Unable to accurately assess via telemedicine Sensory: Sensation is reportedly grossly intact throughout Coordination: No apparent evidence of dysmetria or dysdiadochokinesia Reflexes: Unable to accurately assess via telemedicine Gait: Deferred Results & Data Vital Signs (Past 12 Hours) Vital Signs Temp Pulse Pulse Resp BP BP Pulse Ox 08/09/25 09:00 81 08/09/25 08:53 36.8 C 82 19 130/74 93 08/09/25 03:58 36.5 C 85 18 131/74 98 08/09/25 00:04 61 08/09/25 00:01 36.3 C L 83 18 159/89 H 96 08/08/25 23:51 82 17 128/70 97 08/08/25 23:18 83 O2 Del Method 08/09/25 09:00 08/09/25 08:53 Room Air 08/09/25 03:58 Room Air 08/09/25 00:04 08/09/25 00:01 Room Air 08/08/25 23:51 Room Air 08/08/25 23:18 Laboratory Results Abnormal lab results 08/08/25 08/08/25 08/08/25 Range/Units 19:33 22:07 23:41 WBC 11.11 H (4.8-10.8) K/ul Neut # (Auto) (1.40-6.50) K/uL Lymph # (Auto) 4.04 H (1.20-3.40) K/uL [place] # (Auto) 0.89 H (0.11-0.59) K/uL Potassium 3.4 L (3.5-5.1) mmol/L Chloride (98-107) mmol/L Carbon Dioxide 18 L (21-32) mmol/L Anion Gap 16 H (3-11) Glucose 122 H (70-99(Fasting)) mg/dl POC Glucose 120 H (70-99) mg/dl Lactate 2.1 H* (0.4-2.0) mmol/L Troponin I High Sens (0-14) pg/ml Urine Appearance Cloudy A (Clear) Urine Ketones 1+ H (Negative) 08/09/25 Range/Units 05:13 WBC 13.26 H (4.8-10.8) K/ul Neut # (Auto) 10.47 H (1.40-6.50) K/uL Lymph # (Auto) (1.20-3.40) K/uL [place] # (Auto) 0.98 H (0.11-0.59) K/uL Potassium (3.5-5.1) mmol/L Chloride 112 H (98-107) mmol/L Carbon Dioxide (21-32) mmol/L Anion Gap (3-11) Glucose (70-99(Fasting)) mg/dl POC Glucose (70-99) mg/dl Lactate (0.4-2.0) mmol/L Troponin I High Sens 245.8 H* (0-14) pg/ml Urine Appearance (Clear) Urine Ketones (Negative) Diagnostic Findings Head CT 08/08/25 19:26 Exam(s): CT HEAD Without Contrast EXAM: CT Head Without Intravenous Contrast CLINICAL HISTORY: Reason for exam: seizure. TECHNIQUE: Axial computed tomography images of the head/brain without intravenous contrast. CTDI is 37.42 mGy and DLP is 625.8 mGy-cm. Automated exposure control was utilized for the study. A dose lowering technique was utilized adhering to the principles of ALARA. COMPARISON: 07/17/2016 FINDINGS: Brain: Unremarkable. No hemorrhage. No significant white matter disease. No edema. Ventricles: Unremarkable. No ventriculomegaly. Bones/joints: Unremarkable. No acute fracture. Soft tissues: Unremarkable. Sinuses: Unremarkable as visualized. No acute sinusitis. Mastoid air cells: Unremarkable as visualized. No mastoid effusion. IMPRESSION: Normal head/brain CT. Electronically signed by: Deniz Nance MD 08/08/25 20:59 PM Brain MRI 08/09/25 08:00 EXAM: MR brain wo/w con CLINICAL HISTORY: Seizure. TECHNIQUE: MRI of the brain was performed with and without intravenous contrast administration, with an epilepsy protocol. Sequences obtained include pre-contrast and post-contrast T1-weighted, T2-weighted, FLAIR (Fluid-Attenuated Inversion Recovery), DWI (Diffusion-Weighted Imaging), and ADC (Apparent Diffusion Coefficient) sequences. COMPARISON: Comparison is made with prior CT 08/08/2025 FINDINGS: Brain Parenchyma: No evidence of acute infarction or hemorrhage. Torres-white matter differentiation is preserved. Bilateral hippocampi appear unremarkable. Few Virchow-Vish spaces in the bilateral basal ganglia. Post-Contrast Findings: No abnormal enhancement of the brain parenchyma or meninges. Ventricles and Sulci: The ventricular system is within normal limits without evidence of hydrocephalus. Sulci and cisternal spaces are age-appropriate. Brainstem and Cerebellum: Normal appearance of the brainstem and cerebellum without focal lesions or abnormal enhancement. Vessels: Intracranial vessels appear normal without evidence of vascular malformations or aneurysms. Skull and Calvarium: No evidence of skull vault lesions or abnormal marrow signal within the calvarium. Incidental mild bilateral inferior turbinate hypertrophy with minimal mucosal thickening in ethmoid air cells. IMPRESSION: 1. No evidence of acute intracranial pathology or abnormal contrast enhancement. 2. The findings concur with prior plain CT head. Electronically signed by Akash Pan 08-09-2025 03:05 AM Medications Administered Home Medications Medication Instructions Recorded Confirmed Last Taken apixaban 5 mg tablet (Eliquis) 5 mg PO BID 08/08/25 08/08/25 Unknown latanoprost 0.005 % eye drops 1 drp ophthalmic (eye) HS 08/08/25 08/08/25 Unknown metformin 500 mg tablet,extended 500 mg PO DAILY 08/08/25 08/08/25 Unknown release 24 hr rosuvastatin 20 mg tablet 20 mg PO DAILY 08/08/25 08/08/25 Unknown Active Medications Generic Name Dose Route Start Last Admin Trade Name Freq PRN Reason Stop Dose Admin Apixaban 5 mg 08/09/25 09:00 08/09/25 08:53 Apixaban 5 Mg Tablet PO 09/08/25 08:59 5 mg BID KRISTOPHER Administration Sodium Chloride 1,000 mls @ 125 mls/hr 08/09/25 00:21 08/09/25 08:55 Nss IV 08/09/25 16:20 125 mls/hr .Q8H KRISTOPHER Administration Rosuvastatin Calcium 20 mg 08/09/25 09:00 08/09/25 08:53 Rosuvastatin Calcium 20 Mg Tab PO 09/08/25 08:59 20 mg DAILY KRISTOPHER Administration
[2025-08-09] MEDS: levETIRAcetam 500 MG TAB PO SCH (12:05)
--- NOTE | 2025-08-09 13:25 | Hospitalist Progress Note ---
Date of Service August 09, 2025 Assessment & Plan (1) Seizure: Plan: 59-year-old female with past medical history significant for homozygous factor V Leyden mutation, primary hypercoagulable state, thrombosis of saphenous vein, history of colonoscopy with polypectomy, dyslipidemia, prediabetes presents with seizures. Today evening patient and were cleaning the house as the son is visiting for [place]. At that time patient was feeling slightly l ightheaded and asked her to go downstairs. Patient climbed down the steps and was in the kitchen when she suddenly fell down and fortunately another son was close by who lowered her slowly to the ground. During the episode patient was shaking her upper extremities. And she bit her tongue or lip. Her upper front teeth chipped and having pain in the teeth. No incontinence of urine or stool during the episode. The episode lasted about 1 to 2 minutes but patient was confused for about an hour. Patient does not remember the event. Possible Generalized Seizure Patient presented to the hospital with possible seizure. CT head without contrastno acute finding. MRI brain without contrastno acute finding Evaluated by neurology; they recommended obtaining EEG. Started on Keppra 500 twice daily as per recommendation. Seizure prophylaxis. Paperwork for [employer] filled as per neurology recommendation. Will need outpatient neurology follow- up. Prolonged QTc Demand Ischemia QTc 504 on admission; improved in subsequent EKG High sensitive troponin elevated on admission; down trended Echo shows normal EF of 60 to 65%; grade 1 diastolic dysfunction Continue to monitor on telemetry. I discussed with the patient that she will need Zio patch as outpatient given her event and prolonged QTc on admission; verbalized understanding; follow up with PCP Homozygous factor V Leiden mutation Primary hypercoagulable state History of thrombosis of saphenous vein On Eliquis-continue Dyslipidemia On Crestor-continue Prediabetes On metformin which be held Sliding scale DVT prophylaxis On Eliquis Disposition Telemetry Full code. Time spent evaluating patient, direct bedside care, chart review, placing orders, interpretation of diagnostic studies, discussion with consultants, patient, and family members, as well as other required patient management activities is 50 minutes Please note the above document was generated using voice recognition software. It may contain grammatical, syntax or spelling errors. Any formal questions or concerns about the content, text or information contained within the body of this dictation should be directly addressed to the provider for clarification Admission and Anticipated Discharge Date Admission Date: August 08, 2025 Subjective Patient seen and examined at bedside. She is comfortably sitting up in the bed; is comfortable. No episode of dizziness, lightheadedness, nausea, vomiting or abnormal body movement since admission Review of Systems Review of Systems: All systems reviewed & are unremarkable except as noted in Subjective Physical Exam Physical Exam: General- Not in distress Head- atraumatic Eyes- PERRL, EOMI, anicteric Neck- supple, no JVD. Lungs- clear to auscultation no wheezing or crackles Heart- regular rhythm; no murmur, no gallop. Abdomen- normal bowel sounds, soft, nontender, no distension Extremities- no pretibial edema, no erythema seen Neuro- alert, oriented PERRL, no facial palsy; no dysarthria; moves extremities Results & Data Results & Data Vital Signs (Past 12 Hours) Vital Signs Temp Pulse Pulse Resp BP Pulse Ox O2 Del Method 08/09/25 13:16 36.4 C L 80 18 125/78 93 Room Air 08/09/25 09:00 81 08/09/25 08:53 36.8 C 82 19 130/74 93 Room Air 08/09/25 03:58 36.5 C 85 18 131/74 98 Room Air
[2025-08-09] MEDS: ACETAMINOPHEN 325 MG TAB PO PRN (13:28)
--- NOTE | 2025-08-09 14:19 | Electrocardiogram Report ---
Test Reason : Blood Pressure : */* mmHG Vent. Rate : 100 BPM Atrial Rate : 100 BPM P-R Int : 138 ms QRS Dur : 90 ms QT Int : 398 ms P-R-T Axes : 70 38 58 degrees QTcB Int : 513 ms Normal sinus rhythm Possible Left atrial enlargement Prolonged QT Abnormal ECG When compared with ECG of 17-Jul-2016 21:05, QT has lengthened Confirmed by Javier Monreal ([id number]) on 08/09/2025 2:19:19 PM Referred By: REFERRED SELF Confirmed By: Javier Monreal
--- NOTE | 2025-08-09 14:28 | Electrocardiogram Report ---
Test Reason : Blood Pressure : */* mmHG Vent. Rate : 83 BPM Atrial Rate : 83 BPM P-R Int : 130 ms QRS Dur : 88 ms QT Int : 390 ms P-R-T Axes : 73 55 76 degrees QTcB Int : 458 ms Normal sinus rhythm Normal ECG When compared with ECG of 08-Aug-2025 19:53, (unconfirmed) No significant change was found Confirmed by Javier Monreal ([id number]) on 08/09/2025 2:28:30 PM Referred By: REFERRED SELF Confirmed By: Javier Monreal
[2025-08-09] MEDS: LATANOPROST 0.005% OP SOLN 2.5 ML BTL OP SCH (20:19)
[2025-08-10 06:20] LABS: Hematocrit (blood only) 40.5 % (37.0-47.0); Hemoglobin 14.2 g/dL (12.0-16.0); Immature Granulocytes # (auto) 0.01 K/uL (0.01-0.20); Immature Granulocytes % (auto) 0.1 %; Mean Corpuscular Hemoglobin 29.6 pg (25.0-34.0); Mean Corpuscular Volume 84.6 fL (80.0-100.0); Platelet Count 161 K/uL (130-400); RDW Standard Deviation 37.4 fL (36.4-46.3); Red Blood Count 4.79 M/uL (4.20-5.40); White Blood Count 9.18 K/ul (4.8-10.8)
[2025-08-10 06:47] LABS: Anion Gap 5.0 (3-11); Blood Urea Nitrogen 12.0 mg/dl (6-23); Calcium 8.8 mg/dl (8.6-10.3); Carbon Dioxide 27.0 mmol/L (21-32); Chloride 110.0 mmol/L (98-107); Creatinine Clr Calc Pharmacy 80.4 ml/min; Glucose 97.0 mg/dl (70-99(Fasting)); Potassium 4.4 mmol/L (3.5-5.1); Sodium 142.0 mmol/L (136-145)
[2025-08-10 12:13] VITALS: BP 123/71; PULSE 60; RESP 18; TEMP 98.1; O2SAT 92
--- NOTE | 2025-08-10 12:53 | Cardiology Progress Note ---
Date of Service August 10, 2025 Assessment & Plan (1) Seizure: (2) Elevated troponin: (3) Hypercoagulable state: Plan Patient is a 59 year old female admitted after a probable seizure at home, based on the description. Neurology consulted. Head CT and Brain MRI are negative. EEG pending. No arrhythmias on telemetry. Borderline prolonged QT interval noted on arrival, improved on repeat today HS troponin elevated at 245. Repeat HS troponin pending. EKG's without acute ischemic changes. Echo with normal LVEF No chest pain or dyspnea reported Seizure episode Homozygous factor V Leiden mutation HLD DM Electrolyte abn Sinus bradycardia - asymptomatic Abnormal Troponin - likely due to demand ischemia and not indicative of Type I IN Recommendations: continue Eliquis correct and f/u electrolytes f/u with Neurology avoid hypovolemia keep patient euvolemic continue statin ECHO - no WMA stable from card standpoint f/u with cardiology as OP post discharge Admission and Anticipated Discharge Date Admission Date: August 08, 2025 Subjective Patient on exam is lying in bed in NAD; no c/o cp, sob, palpitations, dizziness, LOC, cough, fever, nausea, vomiting, abdominal pain, urinary or bowel problem problems, leg swelling, seizures Review of Systems Review of Systems: as per hpi Physical Exam Constitutional: WD/WN, vitals as above no acute distress Eyes: anicteric sclera, pink conjunctiva Neck: supple, NT Respiratory: normal respiratory effort, lungs clear to auscultation Cardiovascular: Rate/Rhythm: regular rate and regular rhythm Heart Sounds: normal S1 and normal S2; no murmur Chest (Breasts): Additional Comments: air entry b/l, no rales, no wheezing Gastrointestinal (Abdomen): normal bowel sounds, soft, nontender, no hepatosplenomegaly Neurologic: PERRL, EOMI, accommodation nl, no face palsy, no dysarthria Results & Data Vital Signs (Past 12 Hours) Vital Signs Temp 36.7 C 08/10/25 12:12 Pulse 60 08/10/25 12:12 Resp 18 08/10/25 12:12 BP 123/71 08/10/25 12:12 Pulse Ox 92 08/10/25 12:12 O2 Del Method Room Air 08/10/25 12:12 Intake & Output 08/09/25 08/10/25 08/10/25 18:59 06:59 18:59 Intake Total 3590 / 3915 325 / 3915 240 / 240 Balance 3590 / 3915 325 / 3915 240 / 240 Weight 80 kg Intake: IV 1999 Sodium Chloride 0.9% 1,000 ml @ 1999 125 mls/hr IV .Q8H [facility] Rx#: [id number] Oral 790 / 1115 325 / 1115 240 / 240 Other 800 / 800 Other: Other Intake Source IV fluid # Unmeasured Voids 2 1 Weight Measurement Method Built in [facility] Vital Signs Temp Pulse Pulse Resp BP Pulse Ox O2 Del Method 08/10/25 12:12 36.7 C 60 18 123/71 92 Room Air 08/10/25 07:42 61 08/10/25 07:39 Room Air 08/10/25 07:30 36.6 C 57 L 17 126/78 94 Room Air 08/10/25 03:16 36.8 C 61 18 132/74 94 Room Air Laboratory Results Laboratory Results WBC 9.18 K/ul (4.8-10.8) 08/10/25 05:31 RBC 4.79 M/uL (4.20-5.40) 08/10/25 05:31 Hgb 14.2 g/dL (12.0-16.0) 08/10/25 05:31 Hct 40.5 % (37.0-47.0) 08/10/25 05:31 MCV 84.6 fL (80.0-100.0) 08/10/25 05:31 MCH 29.6 pg (25.0-34.0) 08/10/25 05:31 MCHC 35.1 g/dL (32.0-36.0) 08/10/25 05:31 RDW Std Deviation 37.4 fL (36.4-46.3) 08/10/25 05:31 RDW Coeff of Mary 12.3 % (11.5-14.5) 08/10/25 05:31 Plt Count 161 K/uL (130-400) 08/10/25 05:31 MPV 11.4 fL (9.4-12.4) 08/10/25 05:31 Immature Gran % (Auto) 0.1 % 08/10/25 05:31 Neut % (Auto) 64.1 % 08/10/25 05:31 Lymph % (Auto) 22.8 % 08/10/25 05:31 [place] % (Auto) 7.5 % 08/10/25 05:31 Eos % (Auto) 4.7 % 08/10/25 05:31 Baso % (Auto) 0.8 % 08/10/25 05:31 Neut # (Auto) 5.89 K/uL (1.40-6.50) 08/10/25 05:31 Lymph # (Auto) 2.09 K/uL (1.20-3.40) 08/10/25 05:31 [place] # (Auto) 0.69 K/uL (0.11-0.59) H 08/10/25 05:31 Eos # (Auto) 0.43 K/uL (0.00-0.50) 08/10/25 05:31 Baso # (Auto) 0.07 K/uL (0.00-0.20) 08/10/25 05:31 Immature Gran # (Auto) 0.01 K/uL (0.01-0.20) 08/10/25 05:31 PT 10.2 Seconds (9.0-12.0) 08/08/25 19:33 INR 1.0 (0.9-1.1) 08/08/25 19:33 APTT 22 Seconds (21-31) 08/08/25 19:33 PTT Ratio 0.8 08/08/25 19:33 Sodium 142 mmol/L (136-145) 08/10/25 05:31 Potassium 4.4 mmol/L (3.5-5.1) 08/10/25 05:31 Chloride 110 mmol/L (98-107) H 08/10/25 05:31 Carbon Dioxide 27 mmol/L (21-32) 08/10/25 05:31 Anion Gap 5 (3-11) 08/10/25 05:31 BUN 12 mg/dl (6-23) 08/10/25 05:31 Creatinine 0.84 mg/dl (0.6-1.2) 08/10/25 05:31 Est Cr Clr Drug Dosing 80.4 ml/min 08/10/25 05:31 eGFR 81.00 08/10/25 05:31 BUN/Creatinine Ratio 14.3 (10-20) 08/10/25 05:31 Glucose 97 mg/dl (70-99(Fasting)) 08/10/25 05:31 POC Glucose 120 mg/dl (70-99) H 08/08/25 19:33 Estimat Average Glucose 111 mg/dl 08/09/25 05:13 Hemoglobin A1c 5.5 % (4.5-5.6) 08/09/25 05:13 Lactate 0.8 mmol/L (0.4-2.0) 08/09/25 05:13 Calcium 8.8 mg/dl (8.6-10.3) 08/10/25 05:31 Magnesium 2.2 mg/dl (1.7-2.4) 08/09/25 05:13 Troponin I High Sens 157.0 pg/ml (0-14) H* D 08/09/25 11:01 Prolactin 121.37 ng/ml 08/08/25 19:33 Urine Color Yellow 08/08/25 23:41 Urine Appearance Cloudy (Clear) A 08/08/25 23:41 Urine pH 5.5 (4.5-7.5) 08/08/25 23:41 Ur Specific [place] 1.013 (1.000-1.030) 08/08/25 23:41 Urine Protein Negative (Negative) 08/08/25 23:41 Urine Glucose (UA) Negative (Negative) 08/08/25 23:41 Urine Ketones 1+ (Negative) H 08/08/25 23:41 Urine Blood Negative (Negative) 08/08/25 23:41 Urine Nitrite Negative (Negative) 08/08/25 23:41 Urine Bilirubin Negative (Negative) 08/08/25 23:41 Urine Urobilinogen Negative (Negative) 08/08/25 23:41 Ur Leukocyte Esterase Negative (Negative) 08/08/25 23:41 Urine WBC (Auto) 0-5 /hpf (0-5) 08/08/25 23:41 Urine RBC (Auto) 0-2 /hpf (0-2) 08/08/25 23:41 U Hyaline Cast (Auto) 0-2 /lpf (0-2) 08/08/25 23:41 U Epithel Cells (Auto) 0-2 /hpf (0-2) 08/08/25 23:41 Urine Bacteria (Auto) None Seen (None Seen) 08/08/25 23:41 Urine Comment 08/08/25 23:[address] 08/08/25 19:26 Exam(s): CT HEAD Without Contrast EXAM: CT Head Without Intravenous Contrast CLINICAL HISTORY: Reason for exam: seizure. TECHNIQUE: Axial computed tomography images of the head/brain without intravenous contrast. CTDI is 37.42 mGy and DLP is 625.8 mGy-cm. Automated exposure control was utilized for the study. A dose lowering technique was utilized adhering to the principles of ALARA. COMPARISON: 07/17/2016 FINDINGS: Brain: Unremarkable. No hemorrhage. No significant white matter disease. No edema. Ventricles: Unremarkable. No ventriculomegaly. Bones/joints: Unremarkable. No acute fracture. Soft tissues: Unremarkable. Sinuses: Unremarkable as visualized. No acute sinusitis. Mastoid air cells: Unremarkable as visualized. No mastoid effusion. IMPRESSION: Normal head/brain CT. Electronically signed by: Deniz Nance MD 08/08/25 20:59 PM Brain MRI 08/09/25 08:00 EXAM: MR brain wo/w con CLINICAL HISTORY: Seizure. TECHNIQUE: MRI of the brain was performed with and without intravenous contrast administration, with an epilepsy protocol. Sequences obtained include pre-contrast and post-contrast T1-weighted, T2-weighted, FLAIR (Fluid-Attenuated Inversion Recovery), DWI (Diffusion-Weighted Imaging), and ADC (Apparent Diffusion Coefficient) sequences. COMPARISON: Comparison is made with prior CT 08/08/2025 FINDINGS: Brain Parenchyma: No evidence of acute infarction or hemorrhage. Torres-white matter differentiation is preserved. Bilateral hippocampi appear unremarkable. Few Virchow-Vish spaces in the bilateral basal ganglia. Post-Contrast Findings: No abnormal enhancement of the brain parenchyma or meninges. Ventricles and Sulci: The ventricular system is within normal limits without evidence of hydrocephalus. Sulci and cisternal spaces are age-appropriate. Brainstem and Cerebellum: Normal appearance of the brainstem and cerebellum without focal lesions or abnormal enhancement. Vessels: Intracranial vessels appear normal without evidence of vascular malformations or aneurysms. Skull and Calvarium: No evidence of skull vault lesions or abnormal marrow signal within the calvarium. Incidental mild bilateral inferior turbinate hypertrophy with minimal mucosal thickening in ethmoid air cells. IMPRESSION: 1. No evidence of acute intracranial pathology or abnormal contrast enhancement. 2. The findings concur with prior plain CT head. Electronically signed by Akash Pan 08-09-2025 03:05 AM Diagnostic Findings CBC 08/10/25 Range/Units 05:31 WBC 9.18 (4.8-10.8) K/ul RBC 4.79 (4.20-5.40) M/uL Hgb 14.2 (12.0-16.0) g/dL Hct 40.5 (37.0-47.0) % Plt Count 161 (130-400) K/uL Neut # (Auto) 5.89 (1.40-6.50) K/uL Lymph # (Auto) 2.09 (1.20-3.40) K/uL [place] # (Auto) 0.69 H (0.11-0.59) K/uL Eos # (Auto) 0.43 (0.00-0.50) K/uL Baso # (Auto) 0.07 (0.00-0.20) K/uL Comprehensive Metabolic Panel 08/10/25 Range/Units 05:31 Sodium 142 (136-145) mmol/L Potassium 4.4 (3.5-5.1) mmol/L Chloride 110 H (98-107) mmol/L Carbon Dioxide 27 (21-32) mmol/L BUN 12 (6-23) mg/dl Creatinine 0.84 (0.6-1.2) mg/dl Glucose 97 (70-99(Fasting)) mg/dl Calcium 8.8 (8.6-10.3) mg/dl Intake and Output 08/09/25 08/10/25 08/10/25 22:59 06:59 14:59 Intake Total 1790 / 3915 325 / 3915 240 / 240 Balance 1790 / 3915 325 / 3915 240 / 240 Intake: IV 1000 / 2000 Sodium Chloride 0.9% 1,000 ml @ 1000 / 2000 125 mls/hr IV .Q8H [facility] Rx#: [id number] Oral 790 / 1115 325 / 1115 240 / 240 Other: # Unmeasured Voids 2 1 Weight 80 kg Weight Measurement Method Built in [facility] Medications Administered Home Medications Medication Instructions Recorded Confirmed Last Taken apixaban 5 mg tablet (Eliquis) 5 mg PO BID 08/08/25 08/08/25 Unknown latanoprost 0.005 % eye drops 1 drp ophthalmic (eye) HS 08/08/25 08/08/25 Unknown metformin 500 mg tablet,extended 500 mg PO DAILY 08/08/25 08/08/25 Unknown release 24 hr rosuvastatin 20 mg tablet 20 mg PO DAILY 08/08/25 08/08/25 Unknown Active Medications Generic Name Dose Route Start Last Admin Trade Name Raven PRN Reason Stop Dose Admin Acetaminophen 650 mg 08/09/25 00:21 08/10/25 01:06 Acetaminophen 325 Mg Tab PO 09/08/25 00:20 650 mg Q4H PRN Administration Pain or Fever Apixaban 5 mg 08/09/25 09:00 08/10/25 08:02 Apixaban 5 Mg Tablet PO 09/08/25 08:59 5 mg BID [facility] Administration Latanoprost 1 drops 08/09/25 21:00 08/09/25 20:19 Latanoprost 0.005% Op Soln 2.5 Ml Btl OP 09/08/25 20:59 1 drops HS KRISTOPHER Administration Levetiracetam 500 mg 08/09/25 11:00 08/10/25 08:03 Levetiracetam 500 Mg Tab PO 09/08/25 10:59 500 mg BID KRISTOPHER Administration Rosuvastatin Calcium 20 mg 08/09/25 09:00 08/10/25 08:03 Rosuvastatin Calcium 20 Mg Tab PO 09/08/25 08:59 20 mg DAILY KRISTOPHER Administration PG Care Time/CCT Total # of Minutes Spent Total Time Spent with Patient: Total time spent is greater than 50% in coordination of care (as documented) at patient's floor/unit and/or counseling patient: Coding Level of Care Code 33636 SUB INP/OBS CARE 3/50MIN Diagnoses Seizure R56.9 Elevated troponin R79.89 Hypercoagulable state D68.59
--- NOTE | 2025-08-10 13:04 | Discharge Summary ---
Date of Service August 10, 2025 Admission HPI Per Admitting Provider 59-year-old female with past medical history significant for homozygous factor V Leyden mutation, primary hypercoagulable state, thrombosis of saphenous vein, history of colonoscopy with polypectomy, dyslipidemia, prediabetes presents with seizures. Today evening patient and were cleaning the house as the son is visiting for [place]. At that time patient was feeling slightly lightheaded and asked her to go downstairs. Patient climbed down the steps and was in the kitchen when she suddenly fell down and fortunately another son was close by who lowered her slowly to the ground. During the episode patient was shaking her upper extremities. And she bit her tongue or lip. Her upper front teeth chipped and having pain in the teeth. No incontinence of urine or stool during the episode. The episode lasted about 1 to 2 minutes but patient was confused for about an hour. Patient does not remember the event. Currently resting comfortably and hemodynamically stable. Patient still has s ome lightheadedness and headache. No runny nose or sore throat. No cough. No fevers. Appetite is okay. Eating and drinking okay. Patient does not think that she is dehydrated. Denies any chest pain or shortness of breath. No nausea. No abdominal pain. Normal bowel and bladder movements. No rash.Complains of some pain in the bilateral shins possibly from the fall. Patient goes to gym regularly and did elliptical for 45minutes yesterday. Past medical history. As mentioned above. Past surgical history. Colonoscopy. Hysteroscopic biopsy. Inguinal hernia repair. Social history. . No smoking. Alcohol rarely. No drug use. Family history. Brother had blood disorder. Father had CABG at age 80. Diabetes. Mother has hypertriglycerides. Admission Exam Per Admitting Provider General- Not in distress Head- atraumatic Eyes- PERRL, EOMI, anicteric ENT- oropharynx some dry blood seen on the lips Neck- supple, no JVD. Lungs- clear to auscultation no wheezing or crackles Heart- regular rhythm; no murmur, no gallop. Abdomen- normal bowel sounds, soft, nontender, no distension Extremities- no pretibial edema, no erythema seen Neuro- alert, oriented PERRL, no facial palsy; no dysarthria; moves extremities Principal Diagnosis Possible generalized seizure Prolonged QTc, demand ischemia Discharge Exam General- Not in distress Head- atraumatic Eyes- PERRL, EOMI, anicteric Neck- supple, no JVD. Lungs- clear to auscultation no wheezing or crackles Heart- regular rhythm; no murmur, no gallop. Abdomen- normal bowel sounds, soft, nontender, no distension Extremities- no pretibial edema, no erythema seen Neuro- alert, oriented PERRL, no facial palsy; no dysarthria; moves extremities Discharge Data Allergies Allergy/AdvReac Type Severity Reaction Status Date / Time No Known Allergies Allergy Unverified 12/29/15 11:58 Consultations 08/08/25 21:05 ED Decision to Admit Stat 08/09/25 08:00 Consult Cardiology Routine Consult Neurology Routine Ordered Studies 08/08/25 19:26 CT head/brain wo con Stat 08/09/25 08:00 MRI Brain [MR brain wo/w con] Urgent Hospital Course (1) Seizure: Per prior attending with addendum: 59-year-old female with past medical history significant for homozygous factor V Leyden mutation, primary hypercoagulable state, thrombosis of saphenous vein, history of colonoscopy with polypectomy, dyslipidemia, prediabetes presents with seizures. Today evening patient and were cleaning the house as the son is visiting for [place]. At that time patient was feeling slightly lightheaded and asked her to go downstairs. Patient climbed down the steps and was in the kitchen when she suddenly fell down and fortunately another son was close by who lowered her slowly to the ground. During the episode patient was shaking her upper extremities. And she bit her tongue or lip. Her upper front teeth chipped and having pain in the teeth. No incontinence of urine or stool during the episode. The episode lasted about 1 to 2 minutes but patient was confused for about an hour. Patient does not remember the event. Possible Generalized Seizure Patient presented to the hospital with possible seizure. CT head without contrastno acute finding. MRI brain without contrastno acute finding Evaluated by neurology; they recommended obtaining EEG. Started on Keppra 500 twice daily as per recommendation. Seizure prophylaxis. Paperwork for [employer] filled as per neurology recommendation. Will need outpatient neurology follow- up. Prolonged QTc Demand Ischemia QTc 504 on admission; improved in subsequent EKG High sensitive troponin elevated on admission; down trended Echo shows normal EF of 60 to 65%; grade 1 diastolic dysfunction Continue to monitor on telemetry. I discussed with the patient that she will need Zio patch as outpatient given her event and prolonged QTc on admission; verbalized understanding; follow up with PCP Homozygous factor V Leiden mutation Primary hypercoagulable state History of thrombosis of saphenous vein On Eliquis-continue Dyslipidemia On Crestor-continue Prediabetes On metformin which be held Sliding scale DVT prophylaxis On Eliquis Disposition Telemetry Full code. Addendum 08/10/2025: Patient was seen and examined at bedside as a follow-up for possible generalized seizure and prolonged QTc/demand ischemia. Patient is hemodynamically stable. No further seizure in the hospital per RN and patient. EEG was done, has not been read yet, case was discussed with neurology, olga for discharge on Keppra 500 mg twice a day. Cardiology cleared her for discharge as well. Patient denies any complaints. Patient is hemodynamically stable and would like to go home. Patient has been made aware of need for Zio patch monitoring and sleep study as an outpatient and need for clearance by neurology for her to resume driving. Patient voiced understanding. She is being discharged with following instructions at the point of discharge: Follow-up with your primary care physician within a week time and likely you will need labs CBC/CMP/magnesium/phosphorus. You were evaluated by neurology, you have been started on Keppra. Follow-up with neurology in 2 to 4 weeks time upon discharge. Follow-up with cardiology in 2 to 4 weeks time upon discharge. As discussed at the bedside, you will need outpatient Zio patch monitoring and outpatient sleep study. Coordinate with your PCP office to set up the test. As has been made aware, you are advised not to drive until neurology clears you as an outpatient. Take your medications as prescribed. Please make sure that you are able to get your medications today by calling your pharmacy before you leave the hospital so that your treatment continuity is not broken. Please note the above document was generated using voice recognition software. It may contain grammatical, syntax or spelling errors. Any formal questions or concerns about the content, text or information contained within the body of this dictation should be directly addressed to the provider for clarification Home Health Attestation I certify that this patient is under my care and that I, or a physicians assist ant working with me, had a face to-face encounter that meets the home health [id number] encounter requirements with this patient. The encounter with the patient was in whole, or in part, for the following medical condition, which is the primary reason for home health care (list medical condition): I certify that, based on my findings, the following services are medically necessary home health services: My clinical findings support the need for the above services because: Further, I certify that my clinical findings support that this patient is homebound (i.e. absences from home require considerable and taxing effort and are for medical reasons or jainism services or infrequently or of short duration when for other reasons) because: Certification for Home Health Services: Based on the above findings, I certify that this patient is confined to the home and needs intermittent jail care, physical therapy and/or speech therapy or continues to need occupational therapy. The patient is under my care, and I have initiated the establishment of the plan of care. This patient will be followed by a physician who will periodically review the plan of care. Total Time Total Time Spent Total Time Spent (In Minutes): 40 Discharge Plan Discharge Items Patient Disposition: Home - Self-Care Reason For Visit: SEIZURE Discharge Diagnosis: Possible generalized seizure Prolonged QTc, demand ischemia Condition on Discharge: Fair Activity: Resume your previous activity Non-emergency contact: Primary Care Provider Call non-emergency contact if: you have any medication questions Follow-up/Referrals: Tesha Angulo MD [Primary Care Provider] - 08/16/25 10:20 am (Date & Time 08/16/2025 10:20 AM Provider: Tesha Angulo MD General Internal Medicine [facility] ) Neetu Raza DO [Outside Practitioners] - 08/25/25 8:00 am Diet: Regular Addtl Attending Provider Instructions: Follow-up with your primary care physician within a week time and likely you will need labs CBC/CMP/magnesium/phosphorus. You were evaluated by neurology, you have been started on Keppra. Follow-up with neurology in 2 to 4 weeks time upon discharge. Follow-up with cardiology in 2 to 4 weeks time upon discharge. As discussed at the bedside, you will need outpatient Zio patch monitoring and outpatient sleep study. Coordinate with your PCP office to set up the test. As has been made aware, you are advised not to drive until neurology clears you as an outpatient. Take your medications as prescribed. Please make sure that you are able to get your medications today by calling your pharmacy before you leave the hospital so that your treatment continuity is not broken. Pending Studies at Discharge: Yes Stand-Alone Forms: My [facility], Smoking Cessation Medications and DC Order Prescriptions: New levetiracetam [Keppra] 500 mg Tablet 500 mg PO BID Qty: 60 0RF Continued latanoprost 0.005 % drops 1 drp ophthalmic (eye) HS metformin 500 mg tablet extended release 24 hr 500 mg PO DAILY rosuvastatin 20 mg tablet 20 mg PO DAILY Eliquis 5 mg tablet 5 mg PO BID Discharge Orders: Discharge Order (Routine); Ordered 08/10/25 Ordered By: Pantera Berrios Admission Data Admit Date/Time: 08/08/25 22:42 Attending Provider: Pantera Berrios Admit Provider: Devante French Primary Care Provider: Tesha Angulo Other Providers: Devante French; Jessica Rodriguez; Wild Pradhan; Neri Pineda; Kristian Newman; Hoang Owen; Derrell oJhnson; Tarah Roman; Angie Garland; Flores De La Rosa; Benny Johnson Ashley M.; Pietro Roland; Jimenez Bautista; Shena Patel; Nicole Cardenas; Tequila Montemayor; Waqas Sandhu; Saman Pan; Verónica Pineda; Lolis Jovel; Javier Chavarria; Víctor Cuadra; Alissa Nichols; Flores Lovett; Facundo Dillon; Flores Traore; Onofre German; Kyle Pickett; Thaddeus Rudd; Malik Chowdary; Manisha Corbin; Gael Kapoor; Jd Britton; Souleymane Mccoy; Brad Woods; Criss Chu; Malik Aldrich; Charlotte Hartman; Ashly Cleaning; John Rangel
--- NOTE | 2025-08-10 18:47 | Electrocardiogram Report ---
Test Reason : Blood Pressure : */* mmHG Vent. Rate : 58 BPM Atrial Rate : 58 BPM P-R Int : 126 ms QRS Dur : 90 ms QT Int : 472 ms P-R-T Axes : 68 56 82 degrees QTcB Int : 463 ms Sinus bradycardia Otherwise normal ECG When compared with ECG of 09-Aug-2025 05:43, No significant change was found Confirmed by Javier Monreal ([id number]) on 08/10/2025 6:46:57 PM Referred By: REFERRED SELF Confirmed By: Javier Monreal
--- NOTE | 2025-08-10 18:57 | Electrocardiogram Report ---
Test Reason : Blood Pressure : */* mmHG Vent. Rate : 91 BPM Atrial Rate : 91 BPM P-R Int : 142 ms QRS Dur : 96 ms QT Int : 410 ms P-R-T Axes : 78 60 64 degrees QTcB Int : 504 ms Normal sinus rhythm Prolonged QT Abnormal ECG When compared with ECG of 08-Aug-2025 19:33, No significant change was found Confirmed by Javier Monreal ([id number]) on 08/10/2025 6:56:52 PM Referred By: REFERRED SELF Confirmed By: Javire Monreal
== END 2025-08-10 15:06 | disposition home or self-care (01) ==
LOC: ED 19:25 → INTOOBSV 22:42 → SUATTDRO 22:42 → 4W 22:42